=== PATIENT | male | born 1970 | race Caucasian/White ===

== ENCOUNTER → 2020-07-27 | Day surgery (SDC) | payer BC ==
[~2020-07-27] VITALS: Ht 175.3 cm; Wt 84.1 kg
[~2020-07-27] MED LIST: ACETAMINOPHEN 500 MG TABLET PO ONE; BUPIVACAINE/PF 0.25% ONE; CHLORHEXIDINE 15 ML UDC MM ONE; CLINDAMYCIN 150 MG/ML, 6ML ONE; EPINEPHRINE 1 MG/ML, 1ML ONE; FENTANYL PF 250 MCG/5ML ONE; LACTATED RINGERS 1,000 ML IV SCH; MIDAZOLAM 1 MG/ML, 2ML ONE; NO MEDS PER PT
[2020-07-27 12:13] VITALS: BP 129/88
== END | disposition home or self-care (01) ==
LOC: OUT 11:31
PROVIDERS: ATTEND Orthopaedic Surgery
DX: M66.821 Spontaneous rupture of other tendons, right upper arm (principal); Z53.8 Procedure and treatment not carried out for other reasons; U07.1 COVID-19; Z79.899 Other long term (current) drug therapy; Z20.828 Contact with and (suspected) exposure to other viral communicable diseases
CPT/HCPCS: 87635; J0171; J2250; J3010; J7120